=== PATIENT | male | born 1955 | race Caucasian/White ===

== ENCOUNTER 2020-07-06 23:33 | Emergency (ER) | payer BC ==
[~2020-07-06] VITALS: Ht 182.9 cm; Wt 91.6 kg
[2020-07-07] MEDS ORDERED: METPRE4DP PO (00:33)
== END 2020-07-07 00:50 | disposition home or self-care (01) ==
LOC: ER 23:33
DX: G51.0 Bell's palsy (principal); I10 Essential (primary) hypertension; Z88.1 Allergy status to other antibiotic agents; Z88.8 Allergy status to other drugs, medicaments and biological substances
CPT/HCPCS: 99283; J7512

== ENCOUNTER 2021-09-06 08:19 | Day surgery (SDC) | payer BC ==
[~2021-09-06] VITALS: Ht 182.9 cm; Wt 90.4 kg
[~2021-09-06 08:19] MED LIST: METPRE4DP PO
[2021-09-06] MEDS ORDERED: ATEN50 PO (08:38)
[2021-09-06] MEDS ORDERED: ATOR10 PO (08:41)
[2021-09-06] MEDS ORDERED: BUPR150ER PO (08:42)
[2021-09-06] MEDS ORDERED: OMEP20ER PO (08:42)
[2021-09-06] MEDS ORDERED: ALBU90OI INH (08:43)
[2021-09-06] MEDS ORDERED: ALLEGRA ALLERG180 MG PO (08:43)
[2021-09-06] MEDS ORDERED: WIXELA 250-501 EAC1 INH (08:43)
[2021-09-06] MEDS ORDERED: UBID10 PO (08:43)
[2021-09-06] MEDS ORDERED: Hair, Skin & N1 EACH PO (08:44)
[2021-09-06] MEDS ORDERED: B12-FOLIC ACID1 EACH PO (08:44)
[2021-09-06] MEDS ORDERED: ERGO400 PO (08:44)
[2021-09-06] MEDS ORDERED: POTCHL20ER PO (08:45)
[2021-09-07] MEDS ORDERED: IBU600 MG PO (05:25)
[2021-09-07] MEDS ORDERED: Ondansetron Odt8 MG MM (05:25)
[2021-09-07] MEDS ORDERED: Norco 5-325 Ta1 EACH PO (05:37)
[2021-09-07] MEDS ORDERED: CHLO25B PO (18:05)
[2021-09-07] MEDS ORDERED: VERA120 PO (18:15)
[2021-09-07] MEDS ORDERED: VITAMIN B122500 MC1 PO (18:16)
[2021-09-07] MEDS ORDERED: Cyclobenzaprine5 MG PO (18:17)
== END 2021-09-06 12:08 | disposition home or self-care (01) ==
LOC: ORSCSDS 08:19
PROVIDERS: Student in an Organized Health Care Education/Training Program
PROC: 0DBH8ZX Excision of Cecum, Via Natural or Artificial Opening Endoscopic, Diagnostic (ICD-10-PCS; principal; 2021-09-06 09:45)
PROC: 0DBP8ZX Excision of Rectum, Via Natural or Artificial Opening Endoscopic, Diagnostic (ICD-10-PCS; principal; 2021-09-06 09:45)
PROC: 0DB78ZX Excision of Stomach, Pylorus, Via Natural or Artificial Opening Endoscopic, Diagnostic (ICD-10-PCS; principal; 2021-09-06 09:45)
PROC: 0DB48ZX Excision of Esophagogastric Junction, Via Natural or Artificial Opening Endoscopic, Diagnostic (ICD-10-PCS; principal; 2021-09-06 09:45)
PROC: 0DBC8ZX Excision of Ileocecal Valve, Via Natural or Artificial Opening Endoscopic, Diagnostic (ICD-10-PCS; principal; 2021-09-06 09:45)
PROC: 0DBM8ZX Excision of Descending Colon, Via Natural or Artificial Opening Endoscopic, Diagnostic (ICD-10-PCS; principal; 2021-09-06 09:45)
PROC: 0DB98ZX Excision of Duodenum, Via Natural or Artificial Opening Endoscopic, Diagnostic (ICD-10-PCS; principal; 2021-09-06 09:45)
PROC: 0DBL8ZX Excision of Transverse Colon, Via Natural or Artificial Opening Endoscopic, Diagnostic (ICD-10-PCS; principal; 2021-09-06 09:45)
PROC: 0DBK8ZX Excision of Ascending Colon, Via Natural or Artificial Opening Endoscopic, Diagnostic (ICD-10-PCS; principal; 2021-09-06 09:45)
DX: K21.9 Gastro-esophageal reflux disease without esophagitis (principal); Z12.11 Encounter for screening for malignant neoplasm of colon; Z86.010 Personal history of colon polyps; K31.7 Polyp of stomach and duodenum; D12.3 Benign neoplasm of transverse colon; D12.2 Benign neoplasm of ascending colon; D12.0 Benign neoplasm of cecum; D12.4 Benign neoplasm of descending colon; D12.8 Benign neoplasm of rectum; I10 Essential (primary) hypertension; J45.909 Unspecified asthma, uncomplicated; Z79.899 Other long term (current) drug therapy
CPT/HCPCS: 88305; J2250; J2704; J7120

== ENCOUNTER 2021-09-07 00:25 | Emergency (ER) | payer BC ==
[~2021-09-07] VITALS: Ht 182.9 cm; Wt 89.8 kg
[~2021-09-07 00:25] MED LIST changes: -AMOCLA875 PO; -CHLO25B PO; -Cyclobenzaprine5 MG PO; -IBU600 MG PO; -Norco 5-325 Ta1 EACH PO; -Ondansetron Odt8 MG MM; -VERA120 PO; -VITAMIN B122500 MC1 PO
[2021-09-07 01:14] LABS: BASOPHILS ABSOLUTE AUTO 0.12 K/mm3 (0.00-0.23); BASOPHILS PERCENT AUTO 1 % (0-2); EOSINOPHILS ABSOLUTE AUTO 0.18 K/mm3 (0.00-0.68); EOSINOPHILS PERCENT AUTO 1 % (0-6); Hematocrit 47.2 % (37.0-53.0); Hemoglobin 15.9 g/dL (13.5-17.5); IMMATURE GRAN ABSOLUTE AUTO 0.17 K/mm3 (0.00-0.10); IMMATURE GRAN PERCENT AUTO 1 % (0-1); LYMPHOCYTES ABSOLUTE AUTO 4.74 K/mm3 (0.84-5.20); LYMPHOCYTES PERCENT AUTO 26 % (21-46); MONOCYTES ABSOLUTE AUTO 1.96 K/mm3 (0.16-1.47); MONOCYTES PERCENT AUTO 11 % (4-13); Mean Corpuscular HGB 29.4 pg (26.0-34.0); Mean Corpuscular HGB Conc 33.7 g/dL (31.5-36.5); Mean Corpuscular Volume 87 fL (80-100); Mean Platelet Volume 9.7 fL (9.1-12.4); NEUTROPHILS ABSOLUTE AUTO 11.03 K/mm3 (1.96-9.15); NEUTROPHILS PERCENT AUTO 61 % (41-73); Platelet Count 315 K/mm3 (150-400); RDW Coefficient Variation 12.7 % (11.7-14.2); RDW Standard Deviation 39.8 fL (35.1-46.3); Red Blood Cell Count 5.41 M/mm3 (4.30-5.90)
[2021-09-07 02:42] LABS: Alanine Aminotransfer (ALT/SGP 50 U/L (12-78); Albumin, Blood 3.2 g/dL (3.4-5.0); Albumin/Globulin Ratio 0.8 (0.8-1.8); Alk Phos 72 U/L (50-136); Anion Gap 10 mmol/L (6-16); Aspartate Aminotrans (AST/SGOT 29 U/L (12-37); Bilirubin, Total 0.4 mg/dL (0.1-1.0); Blood Urea Nitrogen 16 mg/dL (8-24); Bun/Creatinine Ratio 16.7 (12.0-20.0); CO2, Blood 26 mmol/L (21-32); Calcium, Blood 8.9 mg/dL (8.5-10.1); Chloride, Blood 106 mmol/L (98-108); Creatinine, Blood 0.96 mg/dL (0.60-1.20); Glomerular Filtration Rate >60 (60-); Glucose, Blood 99 mg/dL (70-99); Potassium, Blood 3.1 mmol/L (3.5-5.5); Sodium, Blood 142 mmol/L (136-145); Total Protein, Blood 7.2 g/dL (6.4-8.2); Troponin I <0.015 ng/mL (0.000-0.040)
[2021-09-07] MEDS ORDERED: IBU600 MG PO (05:25)
[2021-09-07] MEDS ORDERED: Ondansetron Odt8 MG MM (05:25)
[2021-09-07] MEDS ORDERED: Norco 5-325 Ta1 EACH PO (05:37)
[2021-09-07] MEDS ORDERED: CHLO25B PO (18:05)
[2021-09-07] MEDS ORDERED: VERA120 PO (18:15)
[2021-09-07] MEDS ORDERED: VITAMIN B122500 MC1 PO (18:16)
[2021-09-07] MEDS ORDERED: Cyclobenzaprine5 MG PO (18:17)
== END 2021-09-07 05:37 | disposition home or self-care (01) ==
LOC: ER 00:25
PROVIDERS: Emergency Medicine
DX: K80.20 Calculus of gallbladder without cholecystitis without obstruction (principal); I10 Essential (primary) hypertension; J45.909 Unspecified asthma, uncomplicated; Z88.1 Allergy status to other antibiotic agents; Z88.8 Allergy status to other drugs, medicaments and biological substances; Z79.899 Other long term (current) drug therapy
CPT/HCPCS: 36415; 71275; 74174; 80053; 83605; 83690; 84484; 85025; 93005; 93010; 96374; 96375; 99284-25; J1885; J2270; Q9967

== ENCOUNTER 2021-09-07 17:14 | Inpatient (IN) | payer BC ==
[~2021-09-07 17:14] MED LIST changes: +IBU600 MG PO; +Norco 5-325 Ta1 EACH PO; +Ondansetron Odt8 MG MM
[2021-09-07] MEDS ORDERED: CHLO25B PO (18:05)
[2021-09-07] MEDS ORDERED: VERA120 PO (18:15)
[2021-09-07] MEDS ORDERED: VITAMIN B122500 MC1 PO (18:16)
[2021-09-07] MEDS ORDERED: Cyclobenzaprine5 MG PO (18:17)
--- NOTE | 2021-09-07 21:12 | NUR ---
TEMPERATURE 102.8, NOTIFIED DR. HAGEN, RECEIVED ORDERS TO MEDICATE WITH TYLENOL. WILL CONTINUE TO MONITOR.
[2021-09-08 04:40] LABS: BASOPHILS PERCENT AUTO 1 % (0-2); EOSINOPHILS ABSOLUTE AUTO 0.07 K/mm3 (0.00-0.68); EOSINOPHILS PERCENT AUTO 0 % (0-6); Hematocrit 45.2 % (37.0-53.0); Hemoglobin 14.9 g/dL (13.5-17.5); IMMATURE GRAN ABSOLUTE AUTO 0.17 K/mm3 (0.00-0.10); IMMATURE GRAN PERCENT AUTO 1 % (0-1); LYMPHOCYTES ABSOLUTE AUTO 4.09 K/mm3 (0.84-5.20); LYMPHOCYTES PERCENT AUTO 19 % (21-46); MONOCYTES ABSOLUTE AUTO 2.89 K/mm3 (0.16-1.47); MONOCYTES PERCENT AUTO 14 % (4-13); Mean Corpuscular HGB 29.3 pg (26.0-34.0); Mean Corpuscular Volume 89 fL (80-100); Mean Platelet Volume 9.5 fL (9.1-12.4); NEUTROPHILS ABSOLUTE AUTO 14.15 K/mm3 (1.96-9.15); NEUTROPHILS PERCENT AUTO 66 % (41-73); Platelet Count 276 K/mm3 (150-400); RDW Coefficient Variation 12.8 % (11.7-14.2); RDW Standard Deviation 41.7 fL (35.1-46.3); Red Blood Cell Count 5.08 M/mm3 (4.30-5.90); White Blood Cell Count 21.47 K/mm3 (4.00-11.30)
[2021-09-08 05:01] LABS: Albumin, Blood 3.2 g/dL (3.4-5.0); Albumin/Globulin Ratio 0.8 (0.8-1.8); Bilirubin, Total 1.9 mg/dL (0.1-1.0); Bun/Creatinine Ratio 14.8 (12.0-20.0); Calcium, Blood 9.3 mg/dL (8.5-10.1); Creatinine, Blood 1.22 mg/dL (0.60-1.20); Globulin, Blood 3.8 g/dL (2.2-4.0); Potassium, Blood 3.1 mmol/L (3.5-5.5)
--- NOTE | 2021-09-08 06:06 | NUR ---
ALERT AND ORIENTED X'S 4. RUQ SLIGHTLY FIRM UPON TOUCH. COMPLAINS OF PAIN TO RUQ RATING #7 ON PAIN SCALE, MEDICATED WITH DILAUDID 1MG X'S 2 VIA IV, EFFECTIVE RELIEF, STATES HE DOESN'T REALLY FEEL THAT BAD RIGHT NOW. FEBRILE, CURRENTLY 100.1, TYLENOL 650 MG GIVEN WITH SIP OF WATER, TEMPERATURE REMAINS 100.1. CURRENTLY RESTING PEACEFULLY IN BED, SAFETY MAINTAINED, CALL DAVALOS IN REACH.
--- NOTE | 2021-09-08 13:25 | NUR ---
INFUSING POTASSIUM PER ORDERS. PT MEDICATED PER EMAR FOR PAIN. TOLERATING PO AT THIS TIME. NO NAUSEA. LAP SITES CDI.
--- NOTE | 2021-09-08 16:14 | NUR ---
SHIFT SUMMARY S/P LAP NERI PT PAIN MANAGED PER EMEAR WITH PO MEDICATION. HE DENIES NAUSEA SINCE RETURNING FROM SURGERY. TOLERATING PO WELL. REPOSITIONING SELF FREQUENTLY IN BED, REPORTS FEELING BETTER SINCE PROCEDURE. IV POTASSIUM INFUSING PER EMAR. PT TOLERATING WELL. DENIES FLATUS AT THIS TIME. PLAN WILL BE TO ENCOURAGE AMBULATION AND INCREASE OUT OF BED.
[2021-09-09 04:47] LABS: Hematocrit 38.6 % (37.0-53.0); Hemoglobin 12.8 g/dL (13.5-17.5); Mean Corpuscular HGB 29.6 pg (26.0-34.0); Mean Corpuscular HGB Conc 33.2 g/dL (31.5-36.5); Mean Corpuscular Volume 89 fL (80-100); Mean Platelet Volume 9.8 fL (9.1-12.4); Platelet Count 254 K/mm3 (150-400); RDW Coefficient Variation 12.9 % (11.7-14.2); RDW Standard Deviation 42.1 fL (35.1-46.3); Red Blood Cell Count 4.32 M/mm3 (4.30-5.90); White Blood Cell Count 20.79 K/mm3 (4.00-11.30)
[2021-09-09 05:07] LABS: Albumin, Blood 2.4 g/dL (3.4-5.0); Albumin/Globulin Ratio 0.6 (0.8-1.8); Bilirubin, Total 0.8 mg/dL (0.1-1.0); Bun/Creatinine Ratio 16.9 (12.0-20.0); Calcium, Blood 8.3 mg/dL (8.5-10.1); Creatinine, Blood 1.36 mg/dL (0.60-1.20); Globulin, Blood 4.1 g/dL (2.2-4.0); Total Protein, Blood 6.5 g/dL (6.4-8.2)
--- NOTE | 2021-09-09 06:29 | NUR ---
ALERT AND ORIENTED X'S 4. MEDICATED WITH HYDROCODONE X'S 2 THROUGH NIGHT DUE TO C/O RUQ PAIN RATING #5 ON PAIN SCALE, EFFECTIVE RELIEF. FEBRILE BTW 102.8- 99.8, MEDICATED WITH TYLENOL 650MG. INCISIONS TO ABDOMEN WELL APPROXIMATED, DERMABOND IN PLACE, MAGALI, NO S/S OF INFECTION. SAFTEY MAINTAINED, CALL DAVALOS IN REACH.
[2021-09-09 11:48] LABS: Source, Urine Clean Catch
[2021-09-09 11:51] LABS: Bilirubin, Urine Neg (Neg); Blood, Urine Neg (Neg); Color, Urine Yellow (P-Yellow); Glucose Qualitative, Urine Neg (Neg); Ketones, Urine Neg (Neg); Leukocyte Esterase, Urine Neg (Neg); Nitrite, Urine Neg (Neg); Protein, Urine Neg (Neg); Specific Gravity, Urine 1.005 (1.003-1.022); Urobilinogen, Urine NORM (Normal); pH, Urine 6.5 (5.0-8.0)
[2021-09-09 11:57] LABS: Appearance, Urine Clear (Clear)
--- NOTE | 2021-09-09 17:46 | NUR ---
SHIFT SUMMARY POD 1 LAP NERI. PT [id number], TOLERATING PO WELL, DENIES NAUSEA. PAIN TOLERABLE DURING SHIFT. MEDICATED FOR FEVER WITH TYLENOL DURING SHIFT. PT UP AND AMBULATING FREQUENTLY. PASSING FLATUS. NO BM AT THIS TIME. LAP SITE CDI WITH DERMABOND. PLAN IS TO POSSIBLY DISCHARGE TOMORROW.
--- NOTE | 2021-09-10 04:34 | NUR ---
SHIFT SUMMARY Pt A/Ox4. Febrile throughout the night. PRN tylenol given x1. Temp currently 99.2. Blood cultures still pending. Pt up ad tristin. Walked the halls. + abd pain, PRN norco given x1. x4 lap sites with dermabond intact. Slight redness around 1 lap site, - for drainage. + for flatus - for BM. Tolerating PO liquids through the night. WCTM
[2021-09-10 04:39] LABS: BASOPHILS ABSOLUTE AUTO 0.09 K/mm3 (0.00-0.23); BASOPHILS PERCENT AUTO 1 % (0-2); EOSINOPHILS ABSOLUTE AUTO 0.39 K/mm3 (0.00-0.68); EOSINOPHILS PERCENT AUTO 3 % (0-6); Hematocrit 37.9 % (37.0-53.0); Hemoglobin 12.4 g/dL (13.5-17.5); IMMATURE GRAN ABSOLUTE AUTO 0.15 K/mm3 (0.00-0.10); IMMATURE GRAN PERCENT AUTO 1 % (0-1); LYMPHOCYTES ABSOLUTE AUTO 4.04 K/mm3 (0.84-5.20); LYMPHOCYTES PERCENT AUTO 26 % (21-46); MONOCYTES ABSOLUTE AUTO 1.84 K/mm3 (0.16-1.47); MONOCYTES PERCENT AUTO 12 % (4-13); Mean Corpuscular HGB 29.2 pg (26.0-34.0); Mean Corpuscular HGB Conc 32.7 g/dL (31.5-36.5); Mean Corpuscular Volume 89 fL (80-100); Mean Platelet Volume 9.8 fL (9.1-12.4); NEUTROPHILS PERCENT AUTO 58 % (41-73); Platelet Count 268 K/mm3 (150-400); RDW Coefficient Variation 12.6 % (11.7-14.2); RDW Standard Deviation 41.2 fL (35.1-46.3); Red Blood Cell Count 4.25 M/mm3 (4.30-5.90); White Blood Cell Count 15.41 K/mm3 (4.00-11.30)
[2021-09-10 04:55] LABS: Alanine Aminotransfer (ALT/SGP 83 U/L (12-78); Albumin, Blood 2.5 g/dL (3.4-5.0); Albumin/Globulin Ratio 0.6 (0.8-1.8); Alk Phos 64 U/L (50-136); Anion Gap 5 mmol/L (6-16); Aspartate Aminotrans (AST/SGOT 33 U/L (12-37); Bilirubin, Total 0.5 mg/dL (0.1-1.0); Blood Urea Nitrogen 15 mg/dL (8-24); Bun/Creatinine Ratio 13.2 (12.0-20.0); CO2, Blood 29 mmol/L (21-32); Calcium, Blood 8.5 mg/dL (8.5-10.1); Chloride, Blood 106 mmol/L (98-108); Creatinine, Blood 1.14 mg/dL (0.60-1.20); Glomerular Filtration Rate >60 (60-); Glucose, Blood 93 mg/dL (70-99); Potassium, Blood 3.4 mmol/L (3.5-5.5); Sodium, Blood 140 mmol/L (136-145); Total Protein, Blood 6.5 g/dL (6.4-8.2)
--- NOTE | 2021-09-10 09:39 | NUR ---
PATIENT REFUSED HIS LOVENOX DOSE FOR 0900 TODAY, EXPLAINED ITS IMPORTANCE PT. STRONGLY REFUSED.
[2021-09-10] MEDS ORDERED: AMOCLA875 PO (10:40)
--- NOTE | 2021-09-10 10:51 | NUR ---
DISCHARGED THIS PATIENT VIA THE WHEELCHAIR, AOX3, DISCHARGE INSTRUCTIONS GIVEN, PT. VERBALIZED UNDERSTANDING, PRESCRIPTIONS GIVEN, IV ACCESS REMOVED. PT. AMBULATES INDEPENDENTLY IN THE ROOM.
--- NOTE | 2021-09-12 16:54 | NUR ---
09/12/21 1654 Siomara Serrato VERIFICATIONS, EDITS. END OF CASE TIME CONFIRMED WITH ALONSO WOO.
== END 2021-09-10 11:07 | disposition home or self-care (01) | DRG 418 ==
LOC: SURS 17:14
PROVIDERS: Surgery; ADMIT Family Medicine
PROC: BF131ZZ Fluoroscopy of Gallbladder and Bile Ducts using Low Osmolar Contrast (ICD-10-PCS; 2021-09-08)
PROC: 0FT44ZZ Resection of Gallbladder, Percutaneous Endoscopic Approach (ICD-10-PCS; principal; 2021-09-08 09:30)
DX: K80.00 Calculus of gallbladder with acute cholecystitis without obstruction (principal); C91.10 Chronic lymphocytic leukemia of B-cell type not having achieved remission; J45.909 Unspecified asthma, uncomplicated; Z20.822 Contact with and (suspected) exposure to COVID-19; K82.A1 Gangrene of gallbladder in cholecystitis; I10 Essential (primary) hypertension; Z88.1 Allergy status to other antibiotic agents; Z88.8 Allergy status to other drugs, medicaments and biological substances; Z79.899 Other long term (current) drug therapy; Z86.010 Personal history of colon polyps; Z98.890 Other specified postprocedural states
CPT/HCPCS: 36415; 71045; 74300; 80053; 81003; 83735; 84145; 85025; 85027; 88304; 94640; 94664; 94667; 94760; A9270; C1729; J0295; J1170; J1650; J2405; J2704; J2765; J3010; J3480; J7120

== ENCOUNTER → 2021-09-07 | Outpatient (CLI) | payer BC ==
[~2021-09-07] MED LIST changes: +ALBU90OI INH; +ALLEGRA ALLERG180 MG PO; +AMOCLA875 PO; +ATEN50 PO; +ATOR10 PO; +B12-FOLIC ACID1 EACH PO; +BUPR150ER PO; +CHLO25B PO; +Cyclobenzaprine5 MG PO; +ERGO400 PO; +Hair, Skin & N1 EACH PO; +IBU600 MG PO; +Norco 5-325 Ta1 EACH PO; +OMEP20ER PO; +Ondansetron Odt8 MG MM; +POTCHL20ER PO; +UBID10 PO; +VERA120 PO; +VITAMIN B122500 MC1 PO; +WIXELA 250-501 EAC1 INH
[2021-09-07 15:50] LABS: Hematocrit 44.5 % (37.0-53.0); Hemoglobin 15.1 g/dL (13.5-17.5); Mean Corpuscular HGB 29.8 pg (26.0-34.0); Mean Corpuscular HGB Conc 33.9 g/dL (31.5-36.5); Mean Corpuscular Volume 88 fL (80-100); Mean Platelet Volume 9.6 fL (9.1-12.4); Platelet Count 308 K/mm3 (150-400); RDW Standard Deviation 41.4 fL (35.1-46.3); Red Blood Cell Count 5.06 M/mm3 (4.30-5.90); White Blood Cell Count 27.54 K/mm3 (4.00-11.30)
[2021-09-07 16:22] LABS: Albumin, Blood 3.8 g/dL (3.4-5.0); Albumin/Globulin Ratio 1.1 (0.8-1.8); Bilirubin, Total 0.9 mg/dL (0.1-1.0); Bun/Creatinine Ratio 15.2 (12.0-20.0); Calcium, Blood 9.6 mg/dL (8.5-10.1); Creatinine, Blood 1.32 mg/dL (0.60-1.20); Globulin, Blood 3.5 g/dL (2.2-4.0); Potassium, Blood 3.4 mmol/L (3.5-5.5); Total Protein, Blood 7.3 g/dL (6.4-8.2)
[2021-09-07 17:00] LABS: BASOPHILS ABSOLUTE MAN 0.27 K/mm3 (0.00-0.23); BASOPHILS PERCENT MAN 1 % (0-2); EOSINOPHILS PERCENT MAN 0 % (0-6); LYMPHOCYTES ABSOLUTE MAN 5.23 K/mm3 (0.84-5.20); LYMPHOCYTES PERCENT MAN 19 % (21-46); MONOCYTES ABSOLUTE MAN 4.13 K/mm3 (0.16-1.47); MONOCYTES PERCENT MAN 15 % (4-13); SEG NEUTROPHILS PERCENT MAN 65 % (41-73); TOTAL CELLS COUNTED 100
== END | disposition home or self-care (01) ==
LOC: LAB SHORT 15:41 → LAB 15:41
PROVIDERS: Physician Assistant
DX: K80.20 Calculus of gallbladder without cholecystitis without obstruction (principal)
CPT/HCPCS: 80053; 83690; 85025

== ENCOUNTER 2022-02-28 08:02 | Day surgery (SDC) | payer MEDICARE, BC ==
[~2022-02-28] VITALS: Ht 182.9 cm; Wt 89.3 kg
[~2022-02-28 08:02] MED LIST changes: +AMOCLA875 PO; +CHLO25B PO; +Cyclobenzaprine5 MG PO; +VERA120 PO; +VITAMIN B122500 MC1 PO
== END 2022-02-28 10:16 | disposition home or self-care (01) ==
LOC: ORSCSDS 08:02
PROVIDERS: Student in an Organized Health Care Education/Training Program
PROC: 0DBH8ZX Excision of Cecum, Via Natural or Artificial Opening Endoscopic, Diagnostic (ICD-10-PCS; principal; 2022-02-28 09:15)
PROC: 0DBN8ZX Excision of Sigmoid Colon, Via Natural or Artificial Opening Endoscopic, Diagnostic (ICD-10-PCS; principal; 2022-02-28 09:15)
PROC: 0DBK8ZX Excision of Ascending Colon, Via Natural or Artificial Opening Endoscopic, Diagnostic (ICD-10-PCS; principal; 2022-02-28 09:15)
DX: Z86.010 Personal history of colon polyps (principal); D12.5 Benign neoplasm of sigmoid colon; D12.0 Benign neoplasm of cecum; D12.2 Benign neoplasm of ascending colon; K64.4 Residual hemorrhoidal skin tags; K57.30 Diverticulosis of large intestine without perforation or abscess without bleeding; K64.8 Other hemorrhoids; I10 Essential (primary) hypertension; J45.909 Unspecified asthma, uncomplicated; Z79.899 Other long term (current) drug therapy
CPT/HCPCS: 88305; J2250; J2704; J7120

== ENCOUNTER → 2022-05-17 | Outpatient (CLI) | payer MEDICARE, BC ==
[2022-05-18 12:38] LABS: C DIFFICILE DNA NEGATIVE (Negative)
== END ==
LOC: LAB 12:30 → LAB SHORT 12:30
PROVIDERS: Physician Assistant
DX: R19.7 Diarrhea, unspecified (principal); R25.2 Cramp and spasm
CPT/HCPCS: 87493

== ENCOUNTER 2022-07-27 14:55 | Emergency (ER) | payer MEDICARE, BC ==
[~2022-07-27] VITALS: Ht 182.9 cm; Wt 88.5 kg
== END 2022-07-27 15:30 | disposition home or self-care (01) ==
LOC: ER 14:55
DX: U07.1 COVID-19 (principal); C91.10 Chronic lymphocytic leukemia of B-cell type not having achieved remission; Z88.8 Allergy status to other drugs, medicaments and biological substances; Z79.899 Other long term (current) drug therapy; J45.909 Unspecified asthma, uncomplicated; I10 Essential (primary) hypertension
CPT/HCPCS: 99283

== ENCOUNTER 2023-05-06 08:16 | Day surgery (SDC) | payer MEDICARE, BC ==
[~2023-05-06] VITALS: Ht 182.9 cm; Wt 86.5 kg
[2023-05-06] MEDS ORDERED: ROSU5 (08:40)
[2023-05-06 10:42] VITALS: BP 112/76
== END 2023-05-06 10:41 | disposition home or self-care (01) ==
LOC: ORSCSDS 08:16 → ORD 09:30 → ORSCSDS 09:30 → ORSCMMR 09:30 → ORSCSDS 10:41
PROVIDERS: Internal Medicine Gastroenterology
PROC: 0DBM8ZX Excision of Descending Colon, Via Natural or Artificial Opening Endoscopic, Diagnostic (ICD-10-PCS; principal; 2023-05-06 09:30)
DX: Z86.010 Personal history of colon polyps (principal); D12.4 Benign neoplasm of descending colon; K57.30 Diverticulosis of large intestine without perforation or abscess without bleeding; I10 Essential (primary) hypertension; C91.10 Chronic lymphocytic leukemia of B-cell type not having achieved remission; K21.9 Gastro-esophageal reflux disease without esophagitis; Z79.899 Other long term (current) drug therapy
CPT/HCPCS: 88305; J2250; J2704; J7120

== ENCOUNTER 2023-10-10 04:52 | Emergency (ER) | payer MEDICARE, BC ==
[~2023-10-10] VITALS: Ht 182.9 cm; Wt 88.5 kg
[~2023-10-10 04:52] MED LIST changes: +ROSU5
[2023-10-10 05:44] LABS: BASOPHILS ABSOLUTE AUTO 0.11 K/mm3 (0.00-0.23); BASOPHILS PERCENT AUTO 1 % (0-2); EOSINOPHILS ABSOLUTE AUTO 0.58 K/mm3 (0.00-0.68); EOSINOPHILS PERCENT AUTO 4 % (0-6); Hemoglobin 15.6 g/dL (13.5-17.5); IMMATURE GRAN ABSOLUTE AUTO 0.11 K/mm3 (0.00-0.10); IMMATURE GRAN PERCENT AUTO 1 % (0-1); LYMPHOCYTES ABSOLUTE AUTO 5.11 K/mm3 (0.84-5.20); LYMPHOCYTES PERCENT AUTO 37 % (21-46); MONOCYTES ABSOLUTE AUTO 1.43 K/mm3 (0.16-1.47); MONOCYTES PERCENT AUTO 10 % (4-13); Mean Corpuscular HGB Conc 33.9 g/dL (31.5-36.5); Mean Corpuscular Volume 89 fL (80-100); Mean Platelet Volume 9.4 fL (9.1-12.4); NEUTROPHILS ABSOLUTE AUTO 6.53 K/mm3 (1.96-9.15); NEUTROPHILS PERCENT AUTO 47 % (41-73); Platelet Count 333 K/mm3 (150-400); RDW Coefficient Variation 12.6 % (11.7-14.2); RDW Standard Deviation 40.7 fL (35.1-46.3); White Blood Cell Count 13.87 K/mm3 (4.00-11.30)
[2023-10-10 06:07] LABS: Albumin, Blood 3.9 g/dL (3.4-5.0); Bilirubin, Total 0.3 mg/dL (0.1-1.0); Bun/Creatinine Ratio 15.1 (12.0-20.0); Calcium, Blood 9.6 mg/dL (8.5-10.1); Creatinine, Blood 1.19 mg/dL (0.60-1.20); Globulin, Blood 3.9 g/dL (2.2-4.0); Potassium, Blood 3.3 mmol/L (3.5-5.5); Total Protein, Blood 7.8 g/dL (6.4-8.2)
[2023-10-10 07:36] VITALS: BP 163/81
[2023-10-10] MEDS ORDERED: Robaxin750 MG PO (09:52)
== END 2023-10-10 10:20 | disposition home or self-care (01) ==
LOC: ER 04:52
PROVIDERS: Emergency Medicine
DX: R07.89 Other chest pain (principal); E87.6 Hypokalemia; M62.838 Other muscle spasm; I10 Essential (primary) hypertension; J45.909 Unspecified asthma, uncomplicated; M54.6 Pain in thoracic spine; M54.2 Cervicalgia; G89.29 Other chronic pain; Z79.51 Long term (current) use of inhaled steroids; Z79.899 Other long term (current) drug therapy; Z88.1 Allergy status to other antibiotic agents; Z88.8 Allergy status to other drugs, medicaments and biological substances
CPT/HCPCS: 71045; 80053; 83690; 84484; 85025; 93005; 93010; 96374; 99285-25; A9270; J1885

== ENCOUNTER 2024-07-08 05:56 | Emergency (ER) | payer MEDICARE, BC ==
[~2024-07-08] VITALS: Ht 182.9 cm; Wt 81.7 kg
[~2024-07-08 05:56] MED LIST changes: +Robaxin750 MG PO
[2024-07-08 06:00] VITALS: BP 143/95
[2024-07-08] MEDS ORDERED: Lidocaine 2% Jelly Uro-Jet UR ONE (06:40)
[2024-07-08] MEDS ORDERED: Phenazopyridine HCl 100 MG Tab PO ONE (07:05)
[2024-07-08 07:07] LABS: Source, Urine Foley catheter
[2024-07-08 07:17] LABS: Appearance, Urine Clear (Clear); Bilirubin, Urine Neg (Neg); Blood, Urine 5+ (Neg); Color, Urine Yellow (P-Yellow); Glucose Qualitative, Urine Neg (Neg); Ketones, Urine Neg (Neg); Leukocyte Esterase, Urine Neg (Neg); Nitrite, Urine Neg (Neg); Protein, Urine 2+ (Neg); Urobilinogen, Urine NORM (Normal)
[2024-07-08 07:34] LABS: Red Blood Cells, Urine 50-100 /hpf (0-2); White Blood Cells, Urine 0-2 /hpf (0-5)
[2024-07-08 07:35] LABS: Bacteria Rare /hpf; Squamous Epithelial Cells Not Seen /hpf (Few)
== END 2024-07-08 08:00 | disposition home or self-care (01) ==
LOC: ER 05:56
PROVIDERS: Student in an Organized Health Care Education/Training Program
DX: N99.89 Other postprocedural complications and disorders of genitourinary system (principal); R33.8 Other retention of urine; J45.909 Unspecified asthma, uncomplicated; I10 Essential (primary) hypertension; Z88.1 Allergy status to other antibiotic agents; Z88.8 Allergy status to other drugs, medicaments and biological substances; Z79.51 Long term (current) use of inhaled steroids; Z79.899 Other long term (current) drug therapy
CPT/HCPCS: 51702; 51798; 81001; 99283-25